=== PATIENT | male | born 1990 | race Caucasian/White ===

== ENCOUNTER 2019-09-08 20:36 | Emergency (ER) | payer OTHER ==
[2019-09-08 20:42] VITALS: BP 138/95; PULSE 81; TEMP 98.1; BMI 36.5
[2019-09-08] MEDS ORDERED: DIPHTH,PERTUSS(ACELL),TET 0.5 ML DISP.SYRIN IM ONE ×2 (22:14→22:20)
--- NOTE | 2019-09-08 22:19 | PDOC ---
History of Present Illness - General Chief Complaint: Injury Stated Complaint: LEFT MIDDLE FINGER INJURY Time Seen by Provider: 09/08/19 21:20 History Source: Patient Exam Limitations: No Limitations - History of Present Illness Initial Comments: 09/08/19 22:15 HISTORY OF PRESENT ILLNESS: Is a 29-year-old male denies medical history presents emergency department for evaluation of laceration to middle finger of his left hand. Patient reports he was preparing dinner and stuck his hand inside and sure to grab something and accidentally sliced his finger on an exposed knife blade. Happened approximately 8:00 this evening. Patient applied direct pressure to his finger and bleeding is controlled upon arrival. Patient is unsure of his last tetanus shot but reports it was "many years ago." No recent travel or sick contacts. PAST MEDICAL HISTORY: Denies past medical history SURGICAL HISTORY: Denies ALLERGIES: No known drug allergies REVIEW OF SYSTEMS General/Constitutional: Denies fever or chills. Denies weakness, weight change. HEENT: Denies change in vision. Denies ear pain or discharge. Denies sore throat. Cardiovascular: Denies chest pain or shortness of breath. Respiratory: Denies cough, wheezing, or hemoptysis. Gastrointestinal: Denies nausea, vomiting, diarrhea or constipation. Denies rectal bleeding. Genitourinary: Denies dysuria, frequency, or change in urination. Musculoskeletal: Denies joint or muscle swelling or pain. Denies neck or back pain. Skin and breasts: see HPI Neurologic: Denies headache, vertigo, loss of consciousness, or loss of sensation. Psychiatric: Denies depression or anxiety. Endocrine: Denies increased thirst. Denies abnormal weight change. Hematologic/Lymphatic: Denies anemia, easy bleeding, or history of blood clots. Allergic/Immunologic: Denies hives or skin allergy. Denies latex allergy. PHYSICAL EXAM General Appearance: Well-appearing, appropriately dressed. No apparent distress , no intoxication. Musculoskeletal/Extremities: Normal inspection. FROM of all extremities, normal capillary refill. Pelvis Stable. No CVA tenderness. No tenderness to extremities, pedal edema, swelling, erythema or deformity. Integumentary: Approximate 0.5 cm superficial flap laceration present to the volar aspect of the third digit of the left hand over the distal phalanx. Bleeding is controlled. Neurovascularly intact. Neurologic: insurance law specialist II-XII intact. Fully oriented, alert. Appropriate mood/affect. Motor strength 5/5. No appreciable EOM palsy, facial droop or sensory deficit. Past History - Past Medical History Allergies/Adverse Reactions: Allergies Allergy/AdvReac Type Severity Reaction Status Date / Time No Known Allergies Allergy Verified 09/08/19 20:42 COPD: No - Surgical History Abdominal Surgery: Yes (GASTRIC SLEEVE) - Psycho Social/Smoking Cessation Hx Smoking History: Never smoked *Physical Exam - Vital Signs Last Vital Signs Temp Pulse Resp BP Pulse Ox 98.1 F 81 18 138/95 97 09/08/19 20:39 09/08/19 20:39 09/08/19 20:39 09/08/19 20:39 09/08/19 20:39 Procedures - Consent Consent obtained: Verbal, From Patient - Laceration/Wound Repair Left Volar Finger 3rd digit Wound Length: to 2.5 cm Wound Explored: clean Wound's Depth, Shape: superficial, flap Irrigated w/ Saline: Yes Betadine Prep: No Wound Debrided: minimal Wound Repaired With: Dermabond Layer Closure: No Sterile Dressing Applied: Yes Splint Applied: No Sling Applied: No Progress: 09/08/19 22:19 Patient tolerated well. Medical Decision Making - Medical Decision Making 09/08/19 22:17 A/P: 29-year-old male with laceration to the left middle finger Patient is right-hand dominant Patient works as a concrete rod buster. Dermabond closure Boostrix Discharge home Discharge - Discharge Information Problems reviewed: Yes Clinical Impression/Diagnosis: Laceration Condition: Stable Disposition: HOME - Admission No - Follow up/Referral Referrals: Kenny Stock MD [Primary Care Provider] - - Patient Discharge Instructions Patient Printed Discharge Instructions: DI for Laceration Repair With Dermabond Additional Instructions: Rest, no strenuous activity or exercise until glue is dissolved or lifted Wash from the neck down only and avoid hot steamy environment until Dermabond is gone No bathing or swimming until Dermabond is dissolved Avoid peeling away as wound will open Dermabond should be resolved within 3-7 days May use Tylenol or Motrin for pain relief Followup with network contract manager as needed Return to emergency department for worsening swelling, pain, redness or signs of cellulitis If the wound reopens, may not be reclosed as will be a dirty wound and will need to heal by secondary intention - Post Discharge Activity
== END 2019-09-08 22:38 | disposition home or self-care (01) ==
LOC: JERFT 20:36
PROC: 0HQGXZZ Repair Left Hand Skin, External Approach (ICD-10-PCS; principal; 2019-09-08)
PROC: 3E0234Z Introduction of Serum, Toxoid and Vaccine into Muscle, Percutaneous Approach (ICD-10-PCS; 2019-09-08)
DX: S61.213A Laceration without foreign body of left middle finger without damage to nail, initial encounter (principal); Z98.84 Bariatric surgery status; W26.9XXA Contact with unspecified sharp object(s), initial encounter; Y93.G1 Activity, food preparation and clean up; Y92.9 Unspecified place or not applicable
CPT/HCPCS: 90715; 99281-25